=== PATIENT | female | born 1975 | race Hispanic/Latino ===

== ENCOUNTER → 2017-11-06 | Day surgery (SDC) | payer OTHER ==
[~2017-11-06] VITALS: Ht 160 cm; Wt 83.9 kg
[~2017-11-06] MED LIST: ALPRAZOLAM0.5 MG PO; AMOXICILLIN875 MG PO; CIPRO 500MG (E500 MG PO; CYANOCOBAL1000 MCG/2 IM; CYCLOBENZAPRINE10 M1 PO; FLEXERIL10 MG PO; HYDROXYZINE50 MG PO; MELOXICAM15 M1 PO; MOTRIN600 MG PO; NORCO 325 MG-51 TAB PO; PREDNICOT20 MG PO; PYRIDIUM200 MG PO; SINGULAIR10 M1 PO; VITAMIN B12; XYZAL5 M1 PO
--- NOTE | 2017-11-10 15:13 | Operative Report ---
Operative/Inv Procedure Report Surgery Date: 11/06/17 Name of Procedure: Laparoscopic tubal sterilization Pre-Operative Diagnosis: Multiparity Post-Operative Diagnosis: Same adenomyosis of the uterus Estimated Blood Loss: less than 50ml Surgeon/Rn Call Center: [place] ANN,Deidra Dykes Anesthesia: general endotracheal tube, block Operative/Procedure Note Note: Procedure note patient was taken the operating room placed supine position after adequate anesthesia patient placed in dorsolithotomy position the vagina from dorsal fashion bladder was catheterized examination under anesthesia performed a CO2 tenaculum placed on the Intralipid cervix gentle downward traction patient was tolerating this well Newby cannula was left in place and surgeon regowned and gloved at the level Lakeisha umbilicus stab incision was made to allow for the entry of Veress needle the M was insufflated possibly fully Z CO2 to liver edge dullness which point the Veress needle was removed a 10 mm trocar was inserted atraumatically the umbilicus through that sheath laparoscope placed under direct visualization a 5 mm port was placed to bring minutes of symptoms pubis in midline through that port on a Kleppinger was placed the right tube was picked up carried to its fimbriated end possibly 7 cm that tube Bovie coagulated the left tube was picked up carried to its fimbriated end starting at the isthmus 7 cm that tube was Bovie coagulated patient tolerated this well. At this point maximal CO2 was removed pictures were taken hemostasis was apparent on since removed from the abdomen under direct visualization the incision at the umbilicus was oversewn using 0 the skin of both incisions reapproximated 30 on suture interrupted Marcaine was injected underneath both incisions at the end of the case the Gutierrez was removed the [place] cannula was moved tip intact on since removed from the vagina the patient was returned spine position she was awakened from anesthesia and transferred recovery room awake alert with counts correct Findings: Uterus consistent with 12 week adenomyosis of uterus normal ovaries bilaterally normal tubes bilaterally otherwise normal anatomy
== END ==
LOC: STS 02:21
DX: Z30.2 Encounter for sterilization (principal); N85.8 Other specified noninflammatory disorders of uterus
CPT/HCPCS: 81025; 88305; C9399; J0131; J1100; J2250; J2405; J2765